=== PATIENT | male | born 1960 | race Caucasian/White ===

== ENCOUNTER 2020-09-04 04:57 | Emergency (ER) | payer OTHER ==
[~2020-09-04] VITALS: Ht 182.9 cm; Wt 140.2 kg
[2020-09-04] MEDS ORDERED: TESSALON PERLE100 MG PO (05:13)
[2020-09-04] MEDS ORDERED: KEFLEX250 MG PO (05:13)
[2020-09-04] MEDS ORDERED: BUPROPION XL300 MG PO (05:13)
[2020-09-04] MEDS ORDERED: HYDROCHLOROTH12.5 M1 PO (05:14)
[2020-09-04] MEDS ORDERED: LISINOPRIL20 MG PO (05:14)
[2020-09-04] MEDS ORDERED: HYDROXYZINE HCL25 M2 PO (05:15)
[2020-09-04] MEDS ORDERED: LEXAPRO5 MG PO (05:15)
[2020-09-04] MEDS ORDERED: VERAPAMIL ER180 M1 PO (05:16)
[2020-09-04] MEDS ORDERED: MELOXICAM7.5 MG PO (05:16)
[2020-09-04] MEDS ORDERED: METFORMIN HCL850 MG PO (05:16)
[2020-09-04] MEDS ORDERED: ACETAMINOPHEN-1 EAC2 PO (06:32)
[2020-09-04] MEDS ORDERED: PHENERGAN 25 MG25 MG PO (06:32)
[2020-09-04] MEDS ORDERED: TORADOL 10 MG T10 MG PO (06:32)
[2020-09-04 06:37] VITALS: BP 178/90
[2020-09-05] MEDS ORDERED: IPRAT-ALBUT 0.5-3 ML INH (02:10)
[2020-09-05] MEDS ORDERED: PERCOCET 5-3251 EACH PO (02:10)
[2020-09-05] MEDS ORDERED: NEBULIZER MISCELL (02:10)
== END 2020-09-04 06:38 | disposition home or self-care (01) ==
LOC: M.ERS 04:57
DX: M94.0 Chondrocostal junction syndrome [Tietze] (principal); Z20.822 Contact with and (suspected) exposure to COVID-19; R05 Cough; I10 Essential (primary) hypertension

== ENCOUNTER 2020-09-05 00:59 | Emergency (ER) | payer OTHER ==
[~2020-09-05] VITALS: Ht 182.9 cm; Wt 140.2 kg
[~2020-09-05 00:59] MED LIST: ACETAMINOPHEN-1 EAC2 PO; BUPROPION XL300 MG PO; HYDROCHLOROTH12.5 M1 PO; HYDROXYZINE HCL25 M2 PO; KEFLEX250 MG PO; LEXAPRO5 MG PO; LISINOPRIL20 MG PO; MELOXICAM7.5 MG PO; METFORMIN HCL850 MG PO; PHENERGAN 25 MG25 MG PO; TESSALON PERLE100 MG PO; TORADOL 10 MG T10 MG PO; VERAPAMIL ER180 M1 PO
[2020-09-05] MEDS ORDERED: PERCOCET 5-3251 EACH PO (02:10)
[2020-09-05] MEDS ORDERED: NEBULIZER MISCELL (02:10)
[2020-09-05] MEDS ORDERED: IPRAT-ALBUT 0.5-3 ML INH (02:10)
[2020-09-05 02:51] LABS: ABSOLUTE BASOPHILS 0.1 thou/uL (0.0-0.2); ABSOLUTE MONOCYTES 0.6 thou/uL (0.0-1.2); ABSOLUTE NEUTROPHILS 6.9 thou/uL (1.6-8.1); BASOPHILS 0.7 %; EOSINOPHILS 0.3 %; HEMATOCRIT 44.4 % (42.0-52.0); HEMOGLOBIN 15.8 gm/dL (14.0-18.0); LYMPHOCYTES 20.5 %; MCH 33.4 pg (26.0-34.0); MCHC 35.5 g/dL (28.0-37.0); MCV 93.9 fL (80.0-100.0); MONOCYTES 6.8 %; MPV 8.1 fl. (7.2-11.1); NUCLEATED RBCS 0 /100WBC; PLATELET COUNT* 137 thou/uL (150-400); POLYS 71.7 %; RBC 4.73 mil/uL (4.50-6.00); RDW-CV 13.6 % (10.5-14.5); WBC 9.6 thou/uL (4.0-11.0)
[2020-09-05 03:12] LABS: CALCIUM 8.8 mg/dL (8.5-10.1); CREATININE 1.2 mg/dL (0.6-1.3); POTASSIUM 4.3 mmol/L (3.5-5.1)
[2020-09-05 03:17] LABS: TOTAL BILIRUBIN 0.8 mg/dL (<0.1-1.0); TOTAL PROTEIN 7.5 g/dL (6.4-8.2)
[2020-09-05 03:25] VITALS: BP 159/89
--- NOTE | 2020-09-05 11:15 | EKG ---
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: : 1960 Requested By: Margo Hartman Order Number: [id number] MD: Niraj Garcia Measurements Intervals [place] Rate: 102 P: 68 WA: 155 QRS: 56 QRSD: 95 T: -80 QT: 329 QTc: 429 Interpretive Statements Sinus tachycardia Borderline repolarization abnormality No previous ECG available for comparison Electronically Signed On 09-05-2020 11:14:58 CDT by Niraj Garcia [email or web address] <ELECTRONICALLY SIGNED> By: Niraj Garcia MD, [facility] 09/05/20 1114 0254 0254 Niraj Garcia MD, [facility] /EPI
== END 2020-09-05 03:25 | disposition home or self-care (01) ==
LOC: M.ERS 00:59
PROVIDERS: Personal Emergency Response Attendant
DX: R07.81 Pleurodynia (principal); R05 Cough; R20.2 Paresthesia of skin; I10 Essential (primary) hypertension; Z79.1 Long term (current) use of non-steroidal anti-inflammatories (NSAID); Z79.899 Other long term (current) drug therapy

== ENCOUNTER 2020-09-10 12:42 | Inpatient (IN) | payer OTHER ==
[~2020-09-10] VITALS: Ht 182.9 cm; Wt 140.2 kg
[~2020-09-10 12:42] MED LIST changes: +IPRAT-ALBUT 0.5-3 ML INH; +NEBULIZER MISCELL; +PERCOCET 5-3251 EACH PO
[2020-09-10 12:54] VITALS: BP 179/100
[2020-09-10 15:38] LABS: ABSOLUTE BASOPHILS 0.1 thou/uL (0.0-0.2); ABSOLUTE EOSINOPHILS 0.1 thou/uL (0.0-0.7); ABSOLUTE LYMPHOCYTES 1.1 thou/uL (0.8-5.3); ABSOLUTE MONOCYTES 0.5 thou/uL (0.0-1.2); ABSOLUTE NEUTROPHILS 8.4 thou/uL (1.6-8.1); BASOPHILS 0.8 %; EOSINOPHILS 0.6 %; HEMATOCRIT 40.5 % (42.0-52.0); HEMOGLOBIN 14.1 gm/dL (14.0-18.0); LYMPHOCYTES 10.9 %; MCH 32.6 pg (26.0-34.0); MCHC 34.9 g/dL (28.0-37.0); MCV 93.6 fL (80.0-100.0); MONOCYTES 5.2 %; NUCLEATED RBCS 0 /100WBC; PLATELET COUNT* 167 thou/uL (150-400); POLYS 82.5 %; RBC 4.33 mil/uL (4.50-6.00); RDW-CV 13.8 % (10.5-14.5); WBC 10.2 thou/uL (4.0-11.0)
[2020-09-10 15:48] LABS: CALCIUM 8.5 mg/dL (8.5-10.1); POTASSIUM 4.2 mmol/L (3.5-5.1)
[2020-09-10 15:58] LABS: ALBUMIN 3.3 g/dL (3.4-5.0); MAGNESIUM 1.8 mg/dL (1.8-2.4); TOTAL BILIRUBIN 1.1 mg/dL (<0.1-1.0); TOTAL PROTEIN 7.2 g/dL (6.4-8.2)
--- NOTE | 2020-09-10 16:39 | EKG ---
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: [place] : 1960 Requested By: Armond James Order Number: [id number] MD: Paul Damon Measurements Intervals [place] Rate: 98 P: 60 MN: 153 QRS: 50 QRSD: 92 T: -73 QT: 422 QTc: 539 Interpretive Statements Sinus rhythm Borderline repolarization abnormality Prolonged QT interval Baseline wander in lead(s) II,III,aVR,aVL,aVF,V1,V2,V3 Compared to ECG 09/05/2020 02:54:26 Prolonged QT interval now present Sinus tachycardia no longer present Electronically Signed On 09-10-2020 16:39:06 CDT by Paul Damon [email or web address] <ELECTRONICALLY SIGNED> By: Paul Damon MD, FAC 09/10/20 1639 1252 1252 Paul Damon MD, [facility] /EPI
[2020-09-10 19:40] VITALS: BP 152/92
[2020-09-10] MEDS ORDERED: CHILDREN'S ZYRT10 M1 PO (20:28)
[2020-09-10] MEDS ORDERED: METFORMIN HCL500 M3 PO (20:29)
[2020-09-10] MEDS ORDERED: DICLOFENAC SOD100 G1 (20:30)
[2020-09-10] MEDS ORDERED: DICLOFENAC SODI75 MG PO (20:31)
[2020-09-10] MEDS ORDERED: SKELAXIN 800 M800 M1 PO (20:32)
[2020-09-10] MEDS ORDERED: REMERON 30 MG T30 M1 PO (20:33)
[2020-09-10] MEDS ORDERED: LISINOPRIL20 MG PO (20:34)
[2020-09-10] MEDS ORDERED: ESCITALOPRA5 MG/5 ML PO (20:35)
[2020-09-10] MEDS ORDERED: ESCITALOPRAM PO (20:37)
[2020-09-10] MEDS ORDERED: LIPITOR10 MG PO (20:38)
[2020-09-10] MEDS ORDERED: OMEPRAZOLE 20 M20 M1 PO (20:46)
[2020-09-10 21:00] VITALS: BP 158/83
[2020-09-11 00:55] VITALS: BP 138/69
--- NOTE | 2020-09-11 01:15 | NUR ---
PT ADMITTED TO THE FLOOR APPROX 1999 WITH AT BEDSIDE. HE REPORTS PAIN IN HIS FLANK AND CHEST FOR SEVERAL DAYS, HE WAS SEEN IN THE ED A COUPLE TIMES AND WAS GIVEN PAIN MEDS AND ANTIBIOTICS FOR BRONCHITIS. PT STATES SX ARE CONTINUED AND WORSENING. HE IS HAVING COUGHING SPELLS THAT MAKE HIM VERY ANXIOUS AND THIS MAKES HIM VERY SOA. HE WAS ORIGINALLY ON ROOM AIR BUT WAS PUT ON 2L DUE TO SATS<92. HIS ENTIRE LT SIDE IS BRUISED AND SORE WITH PT REPORTING THIS HAPPENED A FEW DAYS AGO WITH NO INJURY. HE DOES HOWEVER REPORT HAVING A TRIAL OF A PAIN PUMP/SPINAL STIMULATOR AND IT WAS REMOVED A FEW DAYS AGO. PT HAS BEEN UNABLE TO LIE DOWN IN BED WITHOUT COUGHING AND HAVING SOA SO HE IS IN THE RECLINER. LUNGS ARE COURSE IN THE UPPERS AND DIMINISHED IN THE LOWER LOBES. PT IS SLEEPING NOW WITH HOME CPAP WITH OXYGEN BLED INTO THIS. VSS, CALL LIGHT WITHIN REACH. WILL CONTINUE TO MONITOR
[2020-09-11 04:00] VITALS: BP 144/73
--- NOTE | 2020-09-11 05:49 | NUR ---
PT SLEPT WELL FOR SEVERAL HOURS OF THIS PM SHIFT. WHEN AWAKE HE IS HAVING CYCLES OF COUGHING, ANXIETY AND PAIN. HE IS TAKING ULTRAM AND LIDOCAINE FOR PAIN WITH LITTLE HELP. PT IS ON 2LNC OR CPAP. RT EDUCATED PT ON PURSED LIPPED BREATHING TOHELP WITH DYSPNEA AND ANXIETY. PT SEEMS TO HAVE SPASM IN THE LT FLANK THAT CAUSES MUCH PAIN. PT HAS BEEN SR/ST ON MONITOR AND SKIN IS MOIST AND CLAMMY AT TIMES. PT HAS LT SIDED CHEST PAIN WITH COUGHING AND ANXIETY. HE HAS AMBULATED INDEPENDENTLY TO TOILET WITH NO PROBLEM. CALL LIGHT WITHIN REACH, WILL CONTINUE TO MONITOR
[2020-09-11] MEDS ORDERED: PERCOCET 7.5-31 EAC1 PO (07:12)
[2020-09-11 08:19] VITALS: BP 136/80
[2020-09-11] MEDS ORDERED: NEURONTIN300 MG PO (11:17)
--- NOTE | 2020-09-11 11:43 | EKG ---
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: : 1960 Requested By: Armond James Order Number: [id number] MD: Rohan Teixeira Measurements Intervals [place] Rate: 90 P: 72 SC: 160 QRS: 44 QRSD: 91 T: 0 QT: 332 QTc: 407 Interpretive Statements Sinus rhythm Borderline T wave abnormalities Baseline wander in lead(s) V1 Compared to ECG 09/10/2020 12:52:21 T-wave abnormality now present Prolonged QT interval no longer present Electronically Signed On 09-11-2020 11:42:56 CDT by Rohan Teixeira [email or web address] <ELECTRONICALLY SIGNED> By: Rohan Teixeira MD, FACC 09/11/20 1142 1511 1511 Rohan Teixeira MD, FACC /EPI
[2020-09-11 12:00] VITALS: BP 124/71
--- NOTE | 2020-09-11 13:08 | NUR ---
Pt is A&O. Resides at home with . Independent. Pt has a home cpap, no o2 at this time. No hx of HH or SNF. Goal is home at dc. No needs anticipated at dc.
--- NOTE | 2020-09-11 17:31 | NUR ---
Pt c/o pain to L flank/chest and intermittent cough. Notified Dr. Gross, orders received (see MAR). in room for much of shift today. Pt NPO this morning until after CT scan. Now on regular diet, tolerating well. Pt intermittently diaphoretic. States he sweats with increased anxiety and pain. VSS. Receiving IV abx. Pt and inquired whether pt may be discharging tomorrow. Pt informed he will likely stay an additional two nights. Will continue to monitor.
[2020-09-11 20:00] VITALS: BP 122/68
--- NOTE | 2020-09-11 20:00 | NUR ---
RECEIVED REPORT AND ASSUMED CARE OF PT, ASSESSMENT COMPLETED. PT HAVING A DEEP MOIST NON-PRODUCTIVE COUGH. PAINFUL AND SPLINTING LT SIDE R/T MUSCLE/RIB INJURY. LG AREA OF BRUISING NOTED. O2 ON PER CPAP WITH O2 AT 2L. TELEMETRY ON SHOWING SR. PT INDEPENDENT WITH ACTIVITY. WILL CONT TO MONITOR AND ASSIST NEEDED.
[2020-09-12] VITALS: BP 142/76
[2020-09-12 04:12] VITALS: BP 166/70
[2020-09-12 04:17] LABS: HEMATOCRIT 38.6 % (42.0-52.0); HEMOGLOBIN 13.5 gm/dL (14.0-18.0); MCHC 35.1 g/dL (28.0-37.0); MCV 94.2 fL (80.0-100.0); MPV 8.2 fl. (7.2-11.1); RBC 4.1 mil/uL (4.50-6.00); RDW-CV 13.8 % (10.5-14.5); WBC 11.3 thou/uL (4.0-11.0)
[2020-09-12 05:19] LABS: CALCIUM 8.6 mg/dL (8.5-10.1); POTASSIUM 3.8 mmol/L (3.5-5.1); TOTAL BILIRUBIN 0.7 mg/dL (<0.1-1.0); TOTAL PROTEIN 6.7 g/dL (6.4-8.2)
--- NOTE | 2020-09-12 06:30 | NUR ---
AWAKE MOST OF NIGHT WITH C/O PAIN INTO LT TRUNK AND BACK AREA. HAVING A MOIST HARSH COUGH IN WHICH HE HAS BEEN SUPPORTING AREA WITH FIRM WEDGE. PT UNHAPPY WITH PAIN MED ORDERS STATING HE HAS BEEN TAKING PERCOCET 10 MG Q 8 HR FOR A LONG TIME AND WHAT THEY CHANGED ME TOO ISN'T WORKING. ATTEMPTED TO GIVE REASSURANCE. O2 ON PER CPAP. NO CHANGE IN ASSESSMENT. HS GOALS NOT MET TONIGHT OF COMFORT AND REST. HOURLY ROUNDING OBSERVED.
--- NOTE | 2020-09-12 10:42 | NUR ---
ASSUMED CARE OF PT THIS AM AROUND 07- KNIFE GRINDER IN PLACE, TRACING SR- UPON ASSESSMENT PT NOTED TO BE UP SITTING IN BED SIDE RECLINER- PT A&O X4- CONT OF B/B- COURSE LUNG SOUNDS NOTED- NON-PRODUCTIVE COUGH NOTED- VSS, O2 SAT 92% ON RA- ABD SOFT/OBESE/TENDER, BS X4 QUADS- BM REPORTED THIS AM- LARGE BRUISE NOTED TO LEFT SIDE/ABD WRAPS AROUND R/T COUGHING- IV NOTED TO LEFT FA INTACT AND SL, IV ABT GIVEN THIS AM PRESCIBED- GOOD PO INTAKE NOTED THIS AM WITH BREAKFAST- BS MONITORED ORDERED WITH SSI PRESCRIBED- SCHEDULED TRAMADOL GIVEN R/T LEFT SIDE PAIN- CALL LIGHT AND PERSONAL BELONGINGS WITH IN REACH- PT MAKES NEEDS KNOWN- ALL NEEDS MET AT THIS TIME
--- NOTE | 2020-09-12 13:06 | NUR ---
Cxr slightly worse. Blood in stool today
[2020-09-12 15:41] VITALS: BP 145/87
[2020-09-12 17:43] VITALS: BP 116/80
[2020-09-12 20:00] VITALS: BP 135/74
[2020-09-12 23:58] VITALS: BP 137/74
[2020-09-13 04:14] VITALS: BP 140/72
[2020-09-13 05:02] LABS: HEMATOCRIT 35.3 % (42.0-52.0); HEMOGLOBIN 12.3 gm/dL (14.0-18.0); MCH 32.6 pg (26.0-34.0); MCHC 34.9 g/dL (28.0-37.0); MCV 93.6 fL (80.0-100.0); MPV 8.4 fl. (7.2-11.1); RBC 3.77 mil/uL (4.50-6.00); RDW-CV 14.1 % (10.5-14.5); WBC 7.9 thou/uL (4.0-11.0)
[2020-09-13 05:18] LABS: ALBUMIN 2.6 g/dL (3.4-5.0); CALCIUM 7.9 mg/dL (8.5-10.1); CREATININE 0.8 mg/dL (0.6-1.3); MAGNESIUM 1.9 mg/dL (1.8-2.4); POTASSIUM 3.4 mmol/L (3.5-5.1); TOTAL BILIRUBIN 0.6 mg/dL (<0.1-1.0); TOTAL PROTEIN 6.1 g/dL (6.4-8.2)
[2020-09-13 08:23] VITALS: BP 139/85
[2020-09-13 12:00] VITALS: BP 138/79
[2020-09-13 16:00] VITALS: BP 118/68
[2020-09-13 20:00] VITALS: BP 122/72
[2020-09-13 23:42] VITALS: BP 166/85
[2020-09-14 03:53] VITALS: BP 155/86
[2020-09-14 04:25] LABS: HEMATOCRIT 36.4 % (42.0-52.0); HEMOGLOBIN 12.7 gm/dL (14.0-18.0); MCH 32.4 pg (26.0-34.0); MCHC 34.9 g/dL (28.0-37.0); MCV 92.8 fL (80.0-100.0); MPV 8.2 fl. (7.2-11.1); RBC 3.92 mil/uL (4.50-6.00); RDW-CV 13.8 % (10.5-14.5); WBC 8.5 thou/uL (4.0-11.0)
[2020-09-14 04:41] LABS: ALBUMIN 2.8 g/dL (3.4-5.0); CALCIUM 8.2 mg/dL (8.5-10.1); CREATININE 0.9 mg/dL (0.6-1.3); TOTAL BILIRUBIN 0.7 mg/dL (<0.1-1.0); TOTAL PROTEIN 6.3 g/dL (6.4-8.2)
[2020-09-14 08:01] VITALS: BP 147/91
[2020-09-14] MEDS ORDERED: GLYBURIDE 5 MG T5 M1 PO (09:59)
[2020-09-14] MEDS ORDERED: TESSALON PERLE100 MG PO (09:59)
[2020-09-14] MEDS ORDERED: HYDROCODONE-CH115 ML PO (09:59)
[2020-09-14] MEDS ORDERED: LIDOPATCH1 EACH TOP (09:59)
[2020-09-14] MEDS ORDERED: TRAMADOL 50 MG50 MG PO (09:59)
[2020-09-14] MEDS ORDERED: NEURONTIN 400400 M1 PO (09:59)
[2020-09-14] MEDS ORDERED: LEVOFLOXACIN500 MG PO (09:59)
[2020-09-14 11:28] VITALS: BP 147/91
[2020-09-14] MEDS ORDERED: ALBUTEROL2.5 MG/0.5 INH (12:10)
[2020-09-14 12:13] VITALS: BP 135/72
--- NOTE | 2020-09-14 15:14 | NUR ---
IVAN NOTED THIS SHIFT FOR D/C PER POST RT REST/EXERCISE AND CHEST X-RAY- REST AND EXERCISE COMPLETED AND PT DOES NOT NEES O2 FOR D/C- CHEST X-RAY RESULTED WITH RESULTS CALLED TO AND IVAN NOTED TO PROCEED WITH D/C- IV TO LEFT FA D/C'D ALONG WITH CARIDAC MONITOR PRIOR TO D/C- D/C EDUCATION/TEACHING/NEEDED FOLLOW UP'S COMMUNICATED TO PT WITH VERBAL UNDERSTANDING NOTED PER PT- WRITTEN EDUCATION PROVIDED TO PT PRIOR TO D/C WITH ALL QUESTIONS AND CONCERNS ADDRESSED PRIOR TO D/C- BELONGINGS PACKED AND ACCOUNTED FOR PER PT AND - PT CURRENTLY DRESSED, AWAITTING D/C- ALL NEEDS MET AT THIS TIME
== END 2020-09-14 15:35 | disposition home or self-care (01) | DRG 177 ==
LOC: M.ERS 12:42 → M.2W 16:30 → M.TBA-ER 16:30 → M.2W 20:00
PROVIDERS: Emergency Medicine Emergency Medical Services; ADMIT Internal Medicine; ATTEND Internal Medicine
PROC: 5A09357 Assistance with Respiratory Ventilation, Less than 24 Consecutive Hours, Continuous Positive Airway Pressure (ICD-10-PCS; principal; 2020-09-11)
PROC: 5A09357 Assistance with Respiratory Ventilation, Less than 24 Consecutive Hours, Continuous Positive Airway Pressure (ICD-10-PCS; 2020-09-12)
PROC: 5A09357 Assistance with Respiratory Ventilation, Less than 24 Consecutive Hours, Continuous Positive Airway Pressure (ICD-10-PCS; 2020-09-13)
DX: J15.6 Pneumonia due to other Gram-negative bacteria (principal); J96.01 Acute respiratory failure with hypoxia; J90 Pleural effusion, not elsewhere classified; I10 Essential (primary) hypertension; F17.200 Nicotine dependence, unspecified, uncomplicated; S30.1XXA Contusion of abdominal wall, initial encounter; X58.XXXA Exposure to other specified factors, initial encounter; Z20.822 Contact with and (suspected) exposure to COVID-19; Z79.899 Other long term (current) drug therapy; Y93.89 Activity, other specified; Y92.89 Other specified places as the place of occurrence of the external cause; Y99.8 Other external cause status